=== PATIENT | male | born 1975 | race Two or more races ===

== ENCOUNTER 2020-12-20 13:29 | Emergency (ER) | payer OTHER ==
[~2020-12-20] VITALS: Ht 177.8 cm; Wt 95.3 kg
[2020-12-20] MEDS ORDERED: NEXIUM40 M1 PO (14:01)
[2020-12-20] MEDS ORDERED: NEURONTIN300 MG PO (14:01)
[2020-12-20] MEDS ORDERED: KETO10TA2 PO (18:56)
[2020-12-20] MEDS ORDERED: CIPRO500 MG PO (18:57)
[2020-12-20] MEDS ORDERED: TAMS0.4C PO (18:57)
== END 2020-12-20 19:10 | disposition home or self-care (01) ==
LOC: ER 13:29
DX: N20.0 Calculus of kidney (principal); R10.32 Left lower quadrant pain